=== PATIENT | female | born 1975 | race African-American/Black ===

== ENCOUNTER 2016-12-17 10:25 | Emergency (ER) | payer SELFPAY ==
[2016-12-17 10:32] VITALS: TEMP 98.2; BMI 34.7
[2016-12-17] MEDS ORDERED: SODIUM CHLORIDE 1,000 ML IV STA (11:09)
--- NOTE | 2016-12-17 11:12 | PDOC ---
History of Present Illness - General Chief Complaint: Lightheaded Stated Complaint: LIGHTHEADED Time Seen by Provider: 12/17/16 10:44 History Source: Patient - History of Present Illness Timing/Duration: other Severity: moderate Associated Symptoms: reports: nausea/vomiting. denies: chest pain, cough, diaphoresis, fever/chills, headaches, malaise, shortness of breath, syncope, weakness Past History - Past Medical History Allergies/Adverse Reactions: Allergies Allergy/AdvReac Type Severity Reaction Status Date / Time No Known Allergies Allergy Verified 12/17/16 10:27 Home Medications: Ambulatory Orders Unobtainable [Unobtainable] 12/17/16 Cardiac Disorders: (palpitations) HTN: Yes (stopped taking meds 6 months) - Immunization History Immunization Up to Date: Yes - Psycho/Social/Smoking Cessation Hx Suicidal Ideation: No Smoking History: Current every day smoker Number of Cigarettes Smoked Daily: 10 Information on smoking cessation initiated: No Hx Alcohol Use: No Drug/Substance Use Hx: No Review of Systems - Review of Systems Constitutional: No: Chills, Fever HEENTM: No: Blurred Vision Respiratory: No: Cough, Shortness of Breath Cardiac (ROS): No: Chest Pain, Lightheadedness ABD/GI: Yes: Nausea. No: Constipated, Diarrhea, Vomiting, Abdominal cramping : No: Dysuria Neurological: Yes: Dizziness. No: Headache, Numbness, Tingling *Physical Exam - Vital Signs Last Vital Signs Temp Pulse Resp BP Pulse Ox 98.2 F 101 H 18 167/121 100 12/17/16 10:27 12/17/16 10:27 12/17/16 10:27 12/17/16 10:27 12/17/16 10:27 - Physical Exam General Appearance: Yes: Appropriately Dressed. No: Apparent Distress HEENT: positive: Normal Voice, Other (dried blood in R canal w/ intact TM (pt admits to scratching ear w/ her nails at home), no edema, purulent exudates or erythema otherwise) Neck: positive: Supple Respiratory/Chest: positive: Lungs Clear, Normal Breath Sounds. negative: Respiratory Distress Cardiovascular: positive: Regular Rate, S1, S2 Gastrointestinal/Abdominal: positive: Soft. negative: Tender Integumentary: positive: Dry, Warm Neurologic: positive: Fully Oriented, Alert, Normal Mood/Affect, Motor Strength 5/5, Other (pt c/o vertigo upon standing in ED, no nystagmus, Daria intact, no drift, no ataxia). negative: Facial Droop ED Treatment Course - LABORATORY CBC & Chemistry Diagram: 12/17/16 11:20 12/17/16 11:20 Medical Decision Making - Medical Decision Making 12/17/16 11:09 41-year-old female, endorses history of hypertension, was on Diovan many years ago but not currently on medications secondary to lack of insurance, here with dizziness. Patient reports sensation of the room spinning 5 days. Symptoms intermittent and only present when changing positions. Also complaining of tinnitus in the left ear and nausea, which has since improved. Patient concerned that symptoms is related to her swimming as patient swam in a pool 1 day prior to onset of symptoms. Denies ear pain or otorrhea. No headache, visual changes, sensory changes, focal weakness, chest pain or shortness of breath. No recent URI symptoms. No symptoms similar episode in the past. Patient currently does not have a PCP, but is in the process of getting insurance See exam Vertigo w/ tinnitus and nausea in pt w/ long standing hx of HTN but non- compliant w/ meds (2/2 lack of insurance) BP 161/121 in ED Becomes vertiginous upon standing in ED but non-focal Chest/lungs clear No recent URI R/o central vs peripheral source of vertigo -labs -CT -?MRI 12/17/16 14:[address] negative. Pt reports feeling significantly better w/ meclizine and no longer vertiginous. Rpt BP 181/89. As per d/w ED attg, will dc w/ referral to f/u in clinic this week for BP management. *DC/Admit/Observation/Transfer Diagnosis at time of Disposition: Vertigo - Discharge Dispostion Disposition: HOME Condition at time of disposition: Improved - Patient Instructions Printed Discharge Instructions: High Blood Pressure Additional Instructions: Please follow-up at [facility] at [phone] in 2 days for management of you blood pressure If symptoms worsen, return to the ED immediately
[2016-12-17] MEDS ORDERED: METOCLOPRAMIDE HCL INJECTION 10 MG/2 ML VIAL IVPB ONE (11:23)
[2016-12-17] MEDS ORDERED: MECLIZINE HCL 25 MG TABLET (FP) PO ONE (11:23)
[2016-12-17] MEDS ORDERED: METOCLOPRAMIDE HCL INJECTION 10 MG/2 ML VIAL ONE (11:32)
[2016-12-17] MEDS ORDERED: MECLIZINE HCL 25 MG TABLET (FP) ONE (11:33)
[2016-12-17 11:38] LABS: EOSINOPHIL 0.9 % (0-4.5); MCH 29.9 pg (25.7-33.7); MEAN CELL VOLUME 90.7 fl (80-96); MEAN PLT VOLUME 8.3 fl (7.5-11.1); NEUTROPHILS 56.3 % (42.8-82.8); PLATELET COUNT 339 K/MM3 (134-434); RDW 14.5 % (11.6-15.6); WHITE BLOOD COUNT 8.7 K/mm3 (4.0-10.0)
[2016-12-17 11:39] LABS: URINE APPEARANCE CLEAR; URINE BILIRUBIN NEGATIVE (NEGATIVE); URINE BLOOD 1+ (NEGATIVE); URINE COLOR STRAW; URINE GLUCOSE (UA) NEGATIVE (NEGATIVE); URINE KETONE NEGATIVE (NEGATIVE); URINE LEUK ESTERASE NEGATIVE (NEGATIVE); URINE NITRITE NEGATIVE (NEGATIVE); URINE PROTEIN NEGATIVE (NEGATIVE); URINE UROBILINOGEN NEGATIVE mg/dL (0.2-1.0)
[2016-12-17 11:41] LABS: URINE BACTERIA RARE /hpf (NONE SEEN); URINE MUCUS RARE; URINE RBC 1 /hpf (0-3); URINE WBC <1 /hpf (3-5)
[2016-12-17 12:05] LABS: ANION GAP 7 (8-16); BILIRUBIN,TOTAL 0.5 mg/dL (0.2-1.0); CO2 30 mmol/L (21-32); GLUCOSE,RANDOM 90 mg/dL (74-106); SGOT/AST 12 U/L (15-37); SGPT/ALT 19 U/L (12-78); TOT PROT 7.8 g/dl (6.4-8.2)
[2016-12-17 12:07] LABS: ALK PHOS 85 U/L (45-117); CPK 115 IU/L (26-192); TROPONIN I < 0.02 ng/ml (0.00-0.05)
[2016-12-17 15:05] VITALS: BP 181/89; PULSE 76
--- NOTE | 2016-12-17 15:28 | EKG ---
Test Reason : Blood Pressure : / mmHG Vent. Rate : 082 BPM Atrial Rate : 082 BPM P-R Int : 156 ms QRS Dur : 080 ms QT Int : 354 ms P-R-T Axes : 031 016 009 degrees QTc Int : 413 ms NORMAL SINUS RHYTHM POSSIBLE ANTERIOR INFARCT , AGE UNDETERMINED ABNORMAL ECG WHEN COMPARED WITH ECG OF 17-JAN-2007 04:45, NONSPECIFIC T WAVE ABNORMALITY HAS REPLACED INVERTED T WAVES IN INFERIOR LEADS Confirmed by SUZI CHRISTIANSON, NADEEM ([id number]) on 12/17/2016 3:27:57 PM Referred By: Confirmed By:NADEEM ARCHER MD
--- NOTE | 2016-12-17 20:50 | PDOC ---
*Physical Exam - Vital Signs Last Vital Signs Temp Pulse Resp BP Pulse Ox 98.2 F 76 20 181/89 97 12/17/16 10:27 12/17/16 15:04 12/17/16 15:04 12/17/16 15:04 12/17/16 15:04 ED Treatment Course - LABORATORY CBC & Chemistry Diagram: 12/17/16 11:20 12/17/16 11:20 - ADDITIONAL ORDERS Additional order review: Laboratory Results 12/17/16 12/17/16 12/17/16 11:30 11:30 11:20 Sodium 141 Potassium 3.8 Chloride 104 Carbon Dioxide 30 Anion Gap 7 L BUN 13 Creatinine 1.0 Creat Clearance w eGFR > 60 Random Glucose 90 Calcium 9.0 Total Bilirubin 0.5 AST 12 L ALT 19 Alkaline Phosphatase 85 Creatine Kinase 115 Troponin I < 0.02 B-Natriuretic Peptide 65.41 Total Protein 7.8 Albumin 4.0 Urine Color Urine Appearance Urine pH Ur Specific Surprise Urine Protein Urine Glucose (UA) Urine Ketones Urine Blood Urine Nitrite Urine Bilirubin Urine Urobilinogen Ur Leukocyte Esterase Urine RBC Urine WBC Ur Epithelial Cells Urine Bacteria Urine Mucus Urine HCG, Qual Negative 12/17/16 11:20 Sodium Potassium Chloride Carbon Dioxide Anion Gap BUN Creatinine Creat Clearance w eGFR Random Glucose Calcium Total Bilirubin AST ALT Alkaline Phosphatase Creatine Kinase Troponin I B-Natriuretic Peptide Total Protein Albumin Urine Color Straw Urine Appearance Clear Urine pH 7.0 Ur Specific [place] 1.010 Urine Protein Negative Urine Glucose (UA) Negative Urine Ketones Negative Urine Blood 1+ H Urine Nitrite Negative Urine Bilirubin Negative Urine Urobilinogen Negative Ur Leukocyte Esterase Negative Urine RBC 1 Urine WBC <1 Ur Epithelial Cells Rare Urine Bacteria Rare Urine Mucus Rare Urine HCG, Qual 12/17/16 11:20 RBC 4.60 MCV 90.7 MCHC 33.0 RDW 14.5 MPV 8.3 Neutrophils % 56.3 Lymphocytes % 35.8 Monocytes % 6.0 Eosinophils % 0.9 Basophils % 1.0 - Medications Given in the ED: ED Medications Discontinued Medications Generic Name Dose Route Start Last Admin Trade Name Freq PRN Reason Stop Dose Admin Sodium Chloride 1,000 mls @ 1,000 mls/hr 12/17/16 11:09 12/17/16 11:41 Normal Saline - IV 12/17/16 12:08 1,000 mls/hr ASDIR STA Administration Meclizine HCl 25 mg 12/17/16 11:23 12/17/16 11:41 Antivert - PO 12/17/16 11:24 25 mg ONCE ONE Administration Metoclopramide HCl 10 mg 12/17/16 11:23 12/17/16 11:41 Reglan Injection - IVPB 12/17/16 11:24 10 mg ONCE ONE Administration Medical Decision Making - Medical Decision Making 12/17/16 20:32 Patient seen and examined with JESUS Swartz. I agree with her history, assessment, and plan. Summary as follows: 41yo F hx of HTN (off meds 2/2 insurance issues) p/w 5 days of intermittent positional room spinning dizziness that began 1 day after she went swimming. Exam is unremarkable except for a positive [id number] test and negative HINTs testing. Given exam, pt likely has peripheral vertigo. Her symptoms greatly improved with meclizine which also indicates her dizziness is likely peripheral vertigo. Pts initial blood pressure was high at 167/121. Without intervention, her BP decreased to 181/89. I discussed with the patient her very high blood pressure and recommended that she follow up with her primary care doctor within the next 1-2 days for medical management of her high blood pressure. Patient is agreeable to plan and is stable for discharge home. 12/17/16 20:50 *DC/Admit/Observation/Transfer Diagnosis at time of Disposition: Vertigo - Discharge Dispostion Disposition: HOME Condition at time of disposition: Improved - Referrals - Patient Instructions Printed Discharge Instructions: High Blood Pressure Additional Instructions: Please follow-up at [facility] at [phone] in 2 days for management of you blood pressure If symptoms worsen, return to the ED immediately - Post Discharge Activity
== END 2016-12-17 15:25 | disposition home or self-care (01) ==
LOC: JER 10:25
PROC: 3E033GC Introduction of Other Therapeutic Substance into Peripheral Vein, Percutaneous Approach (ICD-10-PCS; principal; 2016-12-17)
PROC: 3E0337Z Introduction of Electrolytic and Water Balance Substance into Peripheral Vein, Percutaneous Approach (ICD-10-PCS; 2016-12-17)
DX: R42 Dizziness and giddiness (principal); R00.2 Palpitations; I10 Essential (primary) hypertension; F17.210 Nicotine dependence, cigarettes, uncomplicated
CPT/HCPCS: 36415; 70450-TC; 80053; 81003; 81015; 83880; 84484; 84703; 85025; 93005; 93010; 99284-25